=== PATIENT | female | born 2000 | race African-American/Black ===

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

== ENCOUNTER 2018-03-08 10:10 | Emergency (ER) | payer OTHER, MEDICAID ==
[2018-03-08] MEDS ORDERED: NORMAL SALINE 1000 ML 1,000 ML IV ONE (11:59)
[2018-03-08] MEDS ORDERED: ACETAMINOPHEN 325 MG TABLET PO ONE (12:00)
--- NOTE | 2018-03-08 12:01 | ER Document Report ---
ED Medical Screen (RME) - General Chief Complaint: Headache Stated Complaint: HEADACHE, HAND NUMBNESS, VISION ISSUE Time Seen by Provider: 03/08/18 11:57 Notes: 22 weeks female presents today with headache nausea general malaise, cough on and off shortness of breath and exertion. TRAVEL OUTSIDE OF THE [place] IN LAST 30 DAYS: No - Related Data Allergies/Adverse Reactions: No Known Allergies Allergy (Verified 08/07/17 11:35) Past Medical History - Past Medical History Cardiac Medical History: Reports: Hx Hypertension - Gestational Endocrine Medical History: Reports: Hx Diabetes Mellitus Type 2 Renal/ Medical History: Denies: Hx Peritoneal Dialysis Past Surgical History: Reports: Hx Orthopedic Surgery - R leg - Immunizations Hx Diphtheria, Pertussis, Tetanus Vaccination: Yes Physical Exam - Vital signs Vitals: Temp Pulse Resp BP Pulse Ox 97.9 F 87 16 121/72 98 03/08/18 11:05 03/08/18 11:05 03/08/18 11:05 03/08/18 11:05 03/08/18 11:05 Course - Vital Signs Vital signs: Temp Pulse Resp BP Pulse Ox 97.9 F 87 16 121/72 98 03/08/18 11:05 03/08/18 11:05 03/08/18 11:05 03/08/18 11:05 03/08/18 11:05
[2018-03-08 12:48] LABS: APPEARANCE,URINE CLEAR; BILIRUBIN,URINE NEGATIVE (NEGATIVE); COLOR,URINE YELLOW; GLUCOSE, URINE 150 mg/dL (NEGATIVE); KETONES,URINE NEGATIVE (NEGATIVE); LEUKOCYTE ESTERASE,URINE NEGATIVE (NEGATIVE); NITRITE,URINE NEGATIVE (NEGATIVE); PROTEIN,URINE NEGATIVE (NEGATIVE); URINE SPECIFIC GRAVITY 1.013; UROBILINOGEN,URINE NEGATIVE mg/dL (<2.0)
[2018-03-08 12:58] LABS: ALANINE AMINOTRANSFERASE 23 U/L (5-35); ALBUMIN 3.8 g/dL (3.7-5.6); ALKALINE PHOSPHATASE 74 U/L (50-135); ANION GAP 10 (5-19); ASPARTATE AMINO TRANSFERASE 27 U/L (5-30); BILIRUBIN,DIRECT 0.2 mg/dL (0.0-0.4); BILIRUBIN,TOTAL 0.6 mg/dL (0.2-1.3); BLOOD UREA NITROGEN 4 mg/dL (7-20); CALCIUM 9.6 mg/dL (8.4-10.2); CARBON DIOXIDE 26 mmol/L (22-30); CHLORIDE 104 mmol/L (98-107); GLUCOSE 124 mg/dL (75-110); SODIUM 139.6 mmol/L (137-145)
[2018-03-08 13:42] LABS: ABSOLUTE EOSINOPHILS # (AUTO) 0.2 10^3/uL (0.0-0.6); ABSOLUTE LYMPHOCYTES (AUTO) 1.9 10^3/uL (0.5-4.7); ABSOLUTE MONOCYTES (AUTO) 0.9 10^3/uL (0.1-1.4); ABSOLUTE NEUT (AUTO) 10.7 10^3/uL (1.7-8.2); BASOPHILS % (AUTO) 0.2 % (0-2); EOSINOPHILS % (AUTO) 1.2 % (0-6); HEMATOCRIT 38.3 % (36.0-47.0); HEMOGLOBIN 12.8 g/dL (12.0-15.5); LYMPHOCYTES % (AUTO) 13.8 % (13-45); MEAN CORPUSCULAR HEMOGLOBIN 30.3 pg (27.0-33.4); MEAN CORPUSCULAR HGB CONC 33.3 g/dL (32.0-36.0); MEAN CORPUSCULAR VOLUME 91 fl (80-97); MONOCYTES % (AUTO) 6.7 % (3-13); PLATELET COUNT 236 10^3/uL (150-450); RED BLOOD COUNT 4.21 10^6/uL (3.72-5.28); RED CELL DISTRIBUTION WIDTH 13.4 % (11.5-14.0); SEGMENTED NEUTROPHILS % (AUTO) 78.1 % (42-78); TOTAL CELLS COUNTED % (AUTO) 100 %; WHITE BLOOD COUNT 13.7 10^3/uL (4.0-10.5)
--- NOTE | 2018-03-08 14:44 | ER Document Report ---
ED General - General Chief Complaint: Headache Stated Complaint: HEADACHE, HAND NUMBNESS, VISION ISSUE Time Seen by Provider: 03/08/18 11:57 TRAVEL OUTSIDE OF THE [place] IN LAST 30 DAYS: No - HPI Patient complains to provider of: Left-sided headache Notes: Patient coming in today for evaluation of left-sided headache. Patient is a currently 26 weeks . Patient is currently diabetic on metformin states compliance with her medication. Patient states slightly nauseous although just recently had a refill her back fetus. Patient otherwise is resting comfortably denies any trauma states taking half a Tylenol tablet for her headache at home with some relief. Patient denies any recent antibiotics. Upon my evaluation due at the wait for the patient to finish placing a food order her cell phone - Related Data Allergies/Adverse Reactions: No Known Allergies Allergy (Verified 08/07/17 11:35) Past Medical History - Social History Smoking Status: Never Smoker Family History: Reviewed & Not Pertinent Patient has suicidal ideation: No Patient has homicidal ideation: No - Past Medical History Cardiac Medical History: Reports: Hx Hypertension - Gestational Endocrine Medical History: Reports: Hx Diabetes Mellitus Type 2 Renal/ Medical History: Denies: Hx Peritoneal Dialysis Past Surgical History: Reports: Hx Orthopedic Surgery - R leg - Immunizations Hx Diphtheria, Pertussis, Tetanus Vaccination: Yes Review of Systems - Review of Systems Constitutional: Other - Headache EENT: No symptoms reported Cardiovascular: No symptoms reported Respiratory: No symptoms reported Gastrointestinal: No symptoms reported Genitourinary: No symptoms reported Female Genitourinary: No symptoms reported Musculoskeletal: No symptoms reported Skin: No symptoms reported Hematologic/Lymphatic: No symptoms reported Neurological/Psychological: No symptoms reported -: Yes All other systems reviewed and negative Physical Exam - Vital signs Vitals: Temp Pulse Resp BP Pulse Ox 97.9 F 87 16 121/72 98 03/08/18 11:05 03/08/18 11:05 03/08/18 11:05 03/08/18 11:05 03/08/18 11:05 Interpretation: Normal - General General appearance: Appears well, Alert - HEENT Head: Normocephalic, Atraumatic Eyes: Normal Pupils: PERRL - Respiratory Respiratory status: No respiratory distress Chest status: Nontender Breath sounds: Normal Chest palpation: Normal - Cardiovascular Rhythm: Regular Heart sounds: Normal auscultation Murmur: No - Abdominal Inspection: Gravid female Distension: No distension Bowel sounds: Normal Tenderness: Nontender Organomegaly: No organomegaly - Back Back: Normal, Nontender - Extremities General upper extremity: Normal inspection, Nontender, Normal color, Normal ROM , Normal temperature General lower extremity: Normal inspection, Nontender, Normal color, Normal ROM , Normal temperature, Normal weight bearing. No: Robinson's sign - Neurological Neuro grossly intact: Yes Cognition: Normal Orientation: AAOx4 Sharee Coma Scale Eye Opening: Spontaneous [place] Coma Scale Verbal: Oriented [place] Coma Scale Motor: Obeys Commands [place] Coma Scale Total: 15 Speech: Normal Motor strength normal: LUE, RUE, LLE, RLE Sensory: Normal - Psychological Associated symptoms: Normal affect, Normal mood - Skin Skin Temperature: Warm Skin Moisture: Dry Skin Color: Normal Course - Re-evaluation Re-evalutation: 03/08/18 14:48 Laboratory studies not show any critical pathology. 03/08/18 14:48 The patient presents with headache without signs of MEDICAL FACILITIES SECTION DIRECTOR bleed, stroke, infection , or other serious etiology. The patient is neurologically intact. Given the extremely low risk of these diagnoses further testing and evaluation for these possibilities does not appear to be indicated at this time. The patient has been instructed to return if the symptoms worsen or change in any way.. Currently waiting to perform bedside ultrasound to evaluate the patient's baby however patient requested weight is that her boyfriend is currently in the cafeteria. It is made to the patient that we are currently visiting that may be sometime before I can return back to perform bedside ultrasound. 03/08/18 15:12 This ultrasound performed positive motion with heart rate of 140- 143. Patient was encouraged follow-up with BUSINESS BANKING MANAGER - Vital Signs Vital signs: Temp Pulse Resp BP Pulse Ox 98.2 F 94 H 16 121/60 99 03/08/18 14:47 03/08/18 14:47 03/08/18 14:47 03/08/18 14:47 03/08/18 14:47 - Laboratory Result Diagrams: 03/08/18 12:19 03/08/18 12:19 Laboratory results interpreted by me: 03/08/18 03/08/18 03/08/18 12:19 12:19 12:19 WBC 13.7 H Seg Neutrophils % 78.1 H Absolute Neutrophils 10.7 H BUN 4 L Creatinine 0.44 L Glucose 124 H Urine Glucose (UA) 150 H Discharge - Discharge Clinical Impression: Headache Qualifiers: Headache type: unspecified Headache chronicity pattern: unspecified pattern Intractability: not intractable Qualified Code(s): R51 - Headache Qualifiers: Weeks of gestation: 26 weeks Qualified Code(s): Z3A.26 - 26 weeks gestation of Condition: Stable Disposition: HOME, SELF-CARE Instructions: Headache ([facility]), ([facility]) Additional Instructions: +Your evaluation today shows no critical pathology. Please make sure he follow- up with your BUSINESS BANKING MANAGER. Do believe some your headache may be due to underlying dehydration. Please make sure you are drinking plenty of fluids to stay well- hydrated. Continue with your nausea medication as prescribed. Blow some further information she can use to help out with any nausea that you are experiencing during . I would also recommend taking Tylenol for your headache you may take 650-1000 mg 4 times a day for your headache. Return to ER symptoms worsen. For nausea and vomiting during I recomment: Start with 10-12.5 mg of pyridoxine (vitamin B6) three times a day for 2 days. If not fully effective, Increase to 12.5 mg of pyridoxine four times a day for 2 days. If not fully effective, Increase to 25 mg of pyridoxine three times a day for 2 days. If not fully effective, Continue 25 mg pyridoxine 3 times a day, and add 12.5 mg of doxylamine before bedtime each day for 2 days. If not fully effective, Continue 25 mg pyridoxine 3 times a day, and take 12.5 mg of doxylamine twice a day. If not fully effective, Continue 25 mg pyridoxine 3 times a day, and take 12.5 mg of doxylamine three times a day. If not fully effective, Continue 25 mg pyridoxine 3 times a day, and 12.5 mg of doxylamine 3 times a day , while adding Emetrol, one to two tablespoons (15-30 cc) taken once or twice a day as needed. (Emetrol is an [id number] mixture of sugar syrups and phosphoric acid [phosphorylated carbohydrate solution]) that acts by soothing the actual wall of the gastrointestinal tract). If not fully effective, Consult with your doctor. Forms: Return to Work
[2018-03-08 14:47] VITALS: BP 121/60
== END 2018-03-08 15:10 | disposition home or self-care (01) ==
LOC: ER 10:10
DX: O26.892 Other specified pregnancy related conditions, second trimester (principal); R51 Headache; R20.0 Anesthesia of skin; O13.2 Gestational [pregnancy-induced] hypertension without significant proteinuria, second trimester; O24.912 Unspecified diabetes mellitus in pregnancy, second trimester; Z3A.26 26 weeks gestation of pregnancy
CPT/HCPCS: 99284; 96360; 96361; 86900; 86901; 85025; 80053; 81001; J7030

== ENCOUNTER 2018-03-17 19:13 | Emergency (ER) | payer OTHER, MEDICAID ==
[2018-03-17] MEDS ORDERED: ALBUTEROL SULFATE 0.042% NEB (1.25 MG/3 ML) AMPUL NEB ONE (19:43)
--- NOTE | 2018-03-17 19:49 | ER Document Report ---
ED Respiratory Problem - General Chief Complaint: Chest Congestion Stated Complaint: WHEEZING Time Seen by Provider: 03/17/18 19:42 Information source: Patient Notes: Chief complaint: Coughing and wheezing History of complain:( obtained from----patient) 17 years old female with a history of asthma, presents today with coughing and wheezing on and off for the last 2 days. No fever chills, denies any chest pain denies any other constitutional symptoms. Onset: As above Duration: 2 days Severity: Mild to moderate Quality: Easy Context: Asthma Exacerbating factor and relieving factors: REVIEW OF SYSTEMS: CONSTITUTIONAL : Denies fever, chills, or sweats. Denies recent illness. EENT: Denies eye, ear, throat, or mouth pain or symptoms. Denies nasal or sinus congestion or discharge. Denies throat, tongue, or mouth swelling or difficulty swallowing. CARDIOVASCULAR: Denies chest pain. Denies palpitations or racing or irregular heart beat. Denies ankle edema. RESPIRATORY: Denies cough, cold, or chest congestion. Denies shortness of breath, difficulty breathing, or wheezing. GASTROINTESTINAL: Denies distention. Denies nausea, vomiting, or diarrhea. Denies blood in vomitus, stools, or per rectum. Denies black, tarry stools. Denies constipation. GENITOURINARY: Denies difficulty urinating, painful urination, burning, frequency, blood in urine, or discharge. FEMALE GENITOURINARY: Denies vaginal bleeding, heavy or abnormal periods, irregular periods. Denies vaginal discharge or odor. MUSCULOSKELETAL: Denies back or neck pain or stiffness. Denies joint pain or swelling. SKIN: Denies rash, lesions or sores. HEMATOLOGIC : Denies easy bruising or bleeding. LYMPHATIC: Denies swollen, enlarged glands. NEUROLOGICAL: Denies confusion or altered mental status. Denies passing out or loss of consciousness. Denies dizziness or lightheadedness. Denies headache. Denies weakness or paralysis or loss of use of either side. Denies problems with gait or speech. Denies sensory loss, numbness, or tingling. Denies seizures. PSYCHIATRIC: Denies anxiety or stress. Denies depression, suicidal ideation, or homicidal ideation. ALL OTHER SYSTEMS REVIEWED AND NEGATIVE. PHYSICAL EXAMINATION: GENERAL: Well-appearing, well-nourished and in no acute distress. HEAD: Atraumatic, normocephalic. EYES: Pupils equal round and reactive to light, extraocular movements intact, conjunctiva are normal. ENT: Nares patent, oropharynx clear without exudates. Moist mucous membranes. NECK: Normal range of motion, supple without lymphadenopathy LUNGS: Breath sounds clear to auscultation bilaterally and equal. Decreased breath sounds with scattered mild expiratory wheeze. HEART: Regular rate and rhythm without murmurs ABDOMEN: Soft, nontender, nondistended abdomen. No guarding, no rebound. No masses appreciated. Examination of genitals-deferred Musculoskeletal: Normal range of motion, no pitting or edema. No cyanosis. NEUROLOGICAL: Cranial nerves grossly intact. Normal speech, normal gait. Normal sensory, motor exams PSYCH: Normal mood, normal affect. SKIN: Warm, Dry, normal turgor, no rashes or lesions noted. Dictation was performed using [employer] voice recognition software TRAVEL OUTSIDE OF THE [place] IN LAST 30 DAYS: No - HPI Notes: Dictated - Related Data Allergies/Adverse Reactions: No Known Allergies Allergy (Verified 08/07/17 11:35) Past Medical History - Social History Smoking Status: Never Smoker Frequency of alcohol use: None Drug Abuse: None Lives with: Family Family History: Reviewed & Not Pertinent - Past Medical History Cardiac Medical History: Reports: Hx Hypertension - Gestational Endocrine Medical History: Reports: Hx Diabetes Mellitus Type 2 Renal/ Medical History: Denies: Hx Peritoneal Dialysis Past Surgical History: Reports: Hx Orthopedic Surgery - R leg - Immunizations Hx Diphtheria, Pertussis, Tetanus Vaccination: Yes Review of Systems - Review of Systems Notes: Dictated Physical Exam - Vital signs Vitals: Temp Pulse Resp BP Pulse Ox 98.4 F 103 H 16 136/76 H 100 03/17/18 19:18 03/17/18 19:18 03/17/18 19:18 03/17/18 19:18 03/17/18 19:18 - Notes Notes: Dictated Course - Re-evaluation Re-evalutation: 03/17/18 19:49 Given nebulizer treatment - Vital Signs Vital signs: Temp Pulse Resp BP Pulse Ox 98.4 F 103 H 16 136/76 H 100 03/17/18 19:18 03/17/18 19:18 03/17/18 19:18 03/17/18 19:18 03/17/18 19:18 Discharge - Discharge Clinical Impression: Hyperactive airway disease Qualifiers: Asthma severity: moderate Asthma persistence: unspecified Asthma complication type: with acute exacerbation Qualified Code(s): J45.901 - Unspecified asthma with (acute) exacerbation Condition: Fair Disposition: HOME, SELF-CARE Instructions: Bronchitis With Bronchospasm (Wheezing) (OM) Prescriptions: Albuterol Sulfate [Proair HFA Inhalation Aerosol 8.5 gm MDI] 2 puff IH Q4H PRN # 1 mdi PRN Reason:
[2018-03-17 20:30] VITALS: BP 128/78
== END 2018-03-17 20:32 | disposition home or self-care (01) ==
LOC: ER 19:13
DX: J45.901 Unspecified asthma with (acute) exacerbation (principal); E11.9 Type 2 diabetes mellitus without complications
CPT/HCPCS: 94640; 99284; J3490

== ENCOUNTER 2018-04-24 18:22 | Outpatient (CLI) | payer OTHER, MEDICAID ==
[2018-04-24 19:26] LABS: APPEARANCE,URINE SLIGHTLY-CLOUDY; BILIRUBIN,URINE NEGATIVE (NEGATIVE); COLOR,URINE YELLOW; GLUCOSE, URINE >=500 mg/dL (NEGATIVE); KETONES,URINE TRACE mg/dL (NEGATIVE); LEUKOCYTE ESTERASE,URINE NEGATIVE (NEGATIVE); NITRITE,URINE NEGATIVE (NEGATIVE); PROTEIN,URINE 30 mg/dL (NEGATIVE); URINE SPECIFIC GRAVITY 1.018; UROBILINOGEN,URINE NEGATIVE mg/dL (<2.0)
[2018-04-24 19:46] LABS: URINE AMPHETAMINES SCREEN NEGATIVE; URINE BARBITURATES SCREEN NEGATIVE; URINE BENZODIAZEPINES SCREEN NEGATIVE; URINE COCAINE SCREEN NEGATIVE; URINE MARIJUANA (THC) SCREEN NEGATIVE; URINE METHADONE SCREEN NEGATIVE; URINE PHENCYCLIDINE SCREEN NEGATIVE
[2018-04-24 21:16] LABS: ABSOLUTE BASOPHILS # (AUTO) 0.1 10^3/uL (0.0-0.2); ABSOLUTE EOSINOPHILS # (AUTO) 0.2 10^3/uL (0.0-0.6); ABSOLUTE LYMPHOCYTES (AUTO) 2.2 10^3/uL (0.5-4.7); ABSOLUTE NEUT (AUTO) 7.3 10^3/uL (1.7-8.2); BASOPHILS % (AUTO) 0.5 % (0-2); EOSINOPHILS % (AUTO) 1.8 % (0-6); HEMATOCRIT 35.4 % (36.0-47.0); HEMOGLOBIN 12.4 g/dL (12.0-15.5); LYMPHOCYTES % (AUTO) 20.2 % (13-45); MEAN CORPUSCULAR HEMOGLOBIN 30.4 pg (27.0-33.4); MEAN CORPUSCULAR HGB CONC 34.9 g/dL (32.0-36.0); MEAN CORPUSCULAR VOLUME 87 fl (80-97); MONOCYTES % (AUTO) 9.2 % (3-13); PLATELET COUNT 210 10^3/uL (150-450); RED BLOOD COUNT 4.07 10^6/uL (3.72-5.28); RED CELL DISTRIBUTION WIDTH 12.4 % (11.5-14.0); SEGMENTED NEUTROPHILS % (AUTO) 68.3 % (42-78); TOTAL CELLS COUNTED % (AUTO) 100 %; WHITE BLOOD COUNT 10.7 10^3/uL (4.0-10.5)
[2018-04-24 21:39] LABS: ALANINE AMINOTRANSFERASE 24 U/L (9-52); ALBUMIN 3.3 g/dL (3.5-5.0); ALKALINE PHOSPHATASE 113 U/L (38-126); ANION GAP 8 (5-19); ASPARTATE AMINO TRANSFERASE 20 U/L (14-36); BILIRUBIN,DIRECT 0.2 mg/dL (0.0-0.4); BILIRUBIN,TOTAL 0.6 mg/dL (0.2-1.3); BLOOD UREA NITROGEN 7 mg/dL (7-20); CALCIUM 9.9 mg/dL (8.4-10.2); CARBON DIOXIDE 22 mmol/L (22-30); CHLORIDE 107 mmol/L (98-107); GLUCOSE 91 mg/dL (75-110); POTASSIUM 4.1 mmol/L (3.6-5.0); SODIUM 137.2 mmol/L (137-145); TOTAL PROTEIN 6.2 g/dL (6.3-8.2)
[2018-04-24] MEDS ORDERED: METFORMIN HCL 500 MG TABLET ONE (22:03)
--- NOTE | 2018-04-24 22:05 | RADIOLOGY REPORT (SQ) ---
EXAM DESCRIPTION: US FOLLOW UP COMPLETED DATE/TME: 04/24/2018 20:43 CLINICAL HISTORY: 18 years, Female, limited care, complete ob us FINDINGS: Single viable IUP is noted. CJ is within normal limits at 9.0 cm. Anterior placenta. Fetus is in cephalic presentation. anatomic survey is unremarkable. Cervix measures 1.7 cm. Estimated gestational age is 32 weeks and two days. IMPRESSION: Single viable IUP of 32 weeks and two days.
[2018-04-24 22:21] LABS: RUBELLA INTERPRETATION NEGATIVE
[2018-04-24] MEDS ORDERED: METFORMIN HCL 500 MG TABLET PO ONE (23:00)
--- NOTE | 2018-04-25 00:28 | Non Stress Test Report ---
Non Stress Test Datetime Report Generated by CPN: 04/25/2018 00:28 DEMOGRAPHIC Test Number: 1 EGA NST: 32.5 INDICATION Indication for Study: Ordered by Provider VITAL SIGNS Pulse - NST: 85 RESP - NST: 16 NBPSYS NST: 136 NBPDIA NST: 67 URINE RESULTS Urine Protein, NST: Negative Urine Ketones - NST: Positive Urine Glucose - NST: Positive Urine Blood - NST: Negative MONITORING Monitor Explained: Monitor Explained; Test Explained; Patient Verbalized Understanding Time on Monitor: 04/25/2018 19:01 Time off Monitor: 04/25/2018 20:53 NST Duration: 112 NST INTERVENTIONS NST Interventions: None Physician Notified NST: Dr. Brooks BABY A: [id number] BABY A Movement : Present Contraction Frequency : x1 FHR Baseline : 150 Accelerations : 15X15 Decelerations : None Variability : Moderate 6-25bpm NST Review: Meets Criteria for Reactive NST NST Review and Verified By : K. Korey, RN NST Results: Reactive NST REPORT Report Trigger: Send Report
[2018-04-26 07:41] LABS: HEPATITIS C VIRUS AB <0.1 s/co ratio (0.0-0.9)
[2018-04-26 08:11] LABS: HEPATITS B SURFACE ANTIGEN Negative (Negative)
== END 2018-04-24 22:38 | disposition home or self-care (01) ==
LOC: LC 18:22
PROVIDERS: ATTEND Obstetrics & Gynecology
PROC: 4A1HXCZ Monitoring of Products of Conception, Cardiac Rate, External Approach (ICD-10-PCS; principal; 2018-04-24)
DX: O47.03 False labor before 37 completed weeks of gestation, third trimester (principal); Z3A.32 32 weeks gestation of pregnancy
CPT/HCPCS: 36415; 59025; 76805; 80053; 80307; 81001; 82962; 83036; 85025; 86592; 86701; 86762; 86803; 86804; 86850; 86900; 86901; 87340; 93976

== ENCOUNTER 2018-04-29 17:05 | Outpatient (CLI) | payer OTHER, MEDICAID ==
[2018-04-29 18:09] LABS: APPEARANCE,URINE SLIGHTLY-CLOUDY; BILIRUBIN,URINE NEGATIVE (NEGATIVE); COLOR,URINE YELLOW; GLUCOSE, URINE 50 mg/dL (NEGATIVE); KETONES,URINE TRACE mg/dL (NEGATIVE); LEUKOCYTE ESTERASE,URINE TRACE (NEGATIVE); NITRITE,URINE NEGATIVE (NEGATIVE); PROTEIN,URINE >=500 mg/dL (NEGATIVE); URINE SPECIFIC GRAVITY 1.025; UROBILINOGEN,URINE NEGATIVE mg/dL (<2.0)
[2018-04-29 18:25] LABS: URINE AMPHETAMINES SCREEN NEGATIVE; URINE BARBITURATES SCREEN NEGATIVE; URINE BENZODIAZEPINES SCREEN NEGATIVE; URINE COCAINE SCREEN NEGATIVE; URINE MARIJUANA (THC) SCREEN NEGATIVE; URINE METHADONE SCREEN NEGATIVE; URINE PHENCYCLIDINE SCREEN NEGATIVE
== END 2018-04-29 19:00 | disposition home or self-care (01) ==
LOC: LC 17:05
PROVIDERS: ATTEND Obstetrics & Gynecology Gynecology
PROC: 4A1HXCZ Monitoring of Products of Conception, Cardiac Rate, External Approach (ICD-10-PCS; principal; 2018-04-29)
DX: O24.415 Gestational diabetes mellitus in pregnancy, controlled by oral hypoglycemic drugs (principal); Z3A.33 33 weeks gestation of pregnancy; Z79.84 Long term (current) use of oral hypoglycemic drugs
CPT/HCPCS: 80307; 81001; 82962

== ENCOUNTER 2018-05-05 16:52 | Outpatient (CLI) | payer OTHER, MEDICAID ==
[2018-05-05 17:26] LABS: ABSOLUTE EOSINOPHILS # (AUTO) 0.1 10^3/uL (0.0-0.6); ABSOLUTE MONOCYTES (AUTO) 1.1 10^3/uL (0.1-1.4); ABSOLUTE NEUT (AUTO) 7.2 10^3/uL (1.7-8.2); BASOPHILS % (AUTO) 0.2 % (0-2); EOSINOPHILS % (AUTO) 1.3 % (0-6); HEMATOCRIT 32.6 % (36.0-47.0); HEMOGLOBIN 11.5 g/dL (12.0-15.5); LYMPHOCYTES % (AUTO) 19.1 % (13-45); MEAN CORPUSCULAR HEMOGLOBIN 30.7 pg (27.0-33.4); MEAN CORPUSCULAR HGB CONC 35.2 g/dL (32.0-36.0); MEAN CORPUSCULAR VOLUME 87 fl (80-97); MONOCYTES % (AUTO) 10.6 % (3-13); PLATELET COUNT 200 10^3/uL (150-450); RED BLOOD COUNT 3.73 10^6/uL (3.72-5.28); RED CELL DISTRIBUTION WIDTH 12.8 % (11.5-14.0); SEGMENTED NEUTROPHILS % (AUTO) 68.8 % (42-78); TOTAL CELLS COUNTED % (AUTO) 100 %; WHITE BLOOD COUNT 10.4 10^3/uL (4.0-10.5)
[2018-05-05 17:48] LABS: ALANINE AMINOTRANSFERASE 28 U/L (9-52); ALKALINE PHOSPHATASE 120 U/L (38-126); ANION GAP 9 (5-19); ASPARTATE AMINO TRANSFERASE 21 U/L (14-36); BILIRUBIN,DIRECT 0.2 mg/dL (0.0-0.4); BILIRUBIN,TOTAL 0.5 mg/dL (0.2-1.3); BLOOD UREA NITROGEN 7 mg/dL (7-20); CALCIUM 9.6 mg/dL (8.4-10.2); CARBON DIOXIDE 18 mmol/L (22-30); CHLORIDE 107 mmol/L (98-107); GLUCOSE 126 mg/dL (75-110); POTASSIUM 4.3 mmol/L (3.6-5.0); SODIUM 134.3 mmol/L (137-145); TOTAL PROTEIN 5.6 g/dL (6.3-8.2); URIC ACID 3.1 mg/dL (2.5-6.2)
[2018-05-05 18:01] LABS: APPEARANCE,URINE CLOUDY; BILIRUBIN,URINE NEGATIVE (NEGATIVE); CALCIUM OXALATE CRYSTALS,URINE MODERATE /HPF; COLOR,URINE YELLOW; GLUCOSE, URINE 150 mg/dL (NEGATIVE); KETONES,URINE TRACE mg/dL (NEGATIVE); LEUKOCYTE ESTERASE,URINE NEGATIVE (NEGATIVE); NITRITE,URINE NEGATIVE (NEGATIVE); PROTEIN,URINE >=500 mg/dL (NEGATIVE); URINE SPECIFIC GRAVITY 1.029
[2018-05-05 18:07] LABS: URINE AMPHETAMINES SCREEN NEGATIVE; URINE BARBITURATES SCREEN NEGATIVE; URINE BENZODIAZEPINES SCREEN NEGATIVE; URINE COCAINE SCREEN NEGATIVE; URINE MARIJUANA (THC) SCREEN NEGATIVE; URINE METHADONE SCREEN NEGATIVE; URINE PHENCYCLIDINE SCREEN NEGATIVE
[2018-05-05 18:13] LABS: URINE CREATININE 270.6 mg/dL (16-327)
[2018-05-05 18:34] LABS: UR PRO/CREAT RATIO RESULT 3.2 mg/mg (0.0-0.2); URINE PROTEIN 858.1 mg/dL (<12)
[2018-05-05] MEDS ORDERED: RINGERS SOLUTION,LACTATED 1,000 ML IV ONE (18:59)
[2018-05-05] MEDS ORDERED: RINGERS SOLUTION,LACTATED 1,000 ML IV PRN (18:59)
--- NOTE | 2018-05-05 19:10 | Non Stress Test Report ---
Non Stress Test Datetime Report Generated by CPN: 05/05/2018 19:09 DEMOGRAPHIC EGA NST: 34.1 EGA NST: 33.2 INDICATION Indication for Study: Other Indication for Study: Gestational Hypertension; Diabetes Mellitus Indication for Study (NST) Other: Labor Check MONITORING Monitor Explained: Monitor Explained; Test Explained; Patient Verbalized Understanding Monitor Explained: Monitor Explained; Test Explained; Patient Verbalized Understanding Time on Monitor: 05/05/2018 17:27 Time on Monitor: 04/29/2018 18:01 Time off Monitor: 05/05/2018 18:39 Time off Monitor: 04/29/2018 18:58 NST Duration: 72 NST Duration: 57 NST INTERVENTIONS NST Interventions: PO Hydration NST Interventions: PO Hydration; Meal Given; Reposition Patient Physician Notified NST: Dr. Infante BABY A: [id number] BABY A Movement : Present Contraction Frequency : irregular Contraction Frequency : 0 FHR Baseline : 150 Accelerations : 15X15 Accelerations : 15X15 Decelerations : None Decelerations : None Variability : Moderate 6-25bpm Variability : Moderate 6-25bpm NST Review: Meets Criteria for Reactive NST NST Review and Verified By : CHEIKH Burton NST Review and Verified By : Ellyn Nguyen RN NST Results: Reactive NST REPORT Report Trigger: Send Report
[2018-05-05] MEDS ORDERED: LABETALOL HCL 200 MG TABLET ONE (20:29)
[2018-05-05] MEDS ORDERED: LABETALOL HCL 200 MG TABLET PO ONE (21:00)
== END 2018-05-05 21:37 | disposition home or self-care (01) ==
LOC: LC 16:52
PROVIDERS: ATTEND Obstetrics & Gynecology Gynecology
PROC: 4A1HXCZ Monitoring of Products of Conception, Cardiac Rate, External Approach (ICD-10-PCS; principal; 2018-05-05)
DX: O13.3 Gestational [pregnancy-induced] hypertension without significant proteinuria, third trimester (principal); O24.113 Pre-existing type 2 diabetes mellitus, in pregnancy, third trimester; E11.9 Type 2 diabetes mellitus without complications; Z79.84 Long term (current) use of oral hypoglycemic drugs; Z3A.34 34 weeks gestation of pregnancy
CPT/HCPCS: 36415; 59025; 80053; 80307; 81001; 82570; 83615; 84156; 84550; 85025

== ENCOUNTER 2018-05-09 16:15 | Inpatient (IN) | payer OTHER, MEDICAID ==
[2018-05-09 17:24] LABS: ABSOLUTE BASOPHILS # (AUTO) 0.1 10^3/uL (0.0-0.2); ABSOLUTE EOSINOPHILS # (AUTO) 0.1 10^3/uL (0.0-0.6); ABSOLUTE LYMPHOCYTES (AUTO) 2.1 10^3/uL (0.5-4.7); ABSOLUTE MONOCYTES (AUTO) 0.9 10^3/uL (0.1-1.4); ABSOLUTE NEUT (AUTO) 7.5 10^3/uL (1.7-8.2); BASOPHILS % (AUTO) 0.8 % (0-2); HEMATOCRIT 32.2 % (36.0-47.0); HEMOGLOBIN 11.3 g/dL (12.0-15.5); LYMPHOCYTES % (AUTO) 19.3 % (13-45); MEAN CORPUSCULAR HEMOGLOBIN 30.6 pg (27.0-33.4); MEAN CORPUSCULAR VOLUME 88 fl (80-97); MONOCYTES % (AUTO) 8.8 % (3-13); PLATELET COUNT 198 10^3/uL (150-450); RED BLOOD COUNT 3.68 10^6/uL (3.72-5.28); RED CELL DISTRIBUTION WIDTH 13.2 % (11.5-14.0); SEGMENTED NEUTROPHILS % (AUTO) 70.1 % (42-78); TOTAL CELLS COUNTED % (AUTO) 100 %; WHITE BLOOD COUNT 10.7 10^3/uL (4.0-10.5)
[2018-05-09 17:37] LABS: ALANINE AMINOTRANSFERASE 26 U/L (9-52); ALKALINE PHOSPHATASE 118 U/L (38-126); ANION GAP 8 (5-19); ASPARTATE AMINO TRANSFERASE 26 U/L (14-36); BILIRUBIN,DIRECT 0.1 mg/dL (0.0-0.4); BILIRUBIN,TOTAL 0.5 mg/dL (0.2-1.3); BLOOD UREA NITROGEN 8 mg/dL (7-20); CALCIUM 9.5 mg/dL (8.4-10.2); CARBON DIOXIDE 20 mmol/L (22-30); CHLORIDE 106 mmol/L (98-107); GLUCOSE 83 mg/dL (75-110); SODIUM 134.4 mmol/L (137-145); TOTAL PROTEIN 5.5 g/dL (6.3-8.2); URIC ACID 3.5 mg/dL (2.5-6.2)
--- NOTE | 2018-05-09 17:45 | Non Stress Test Report ---
Non Stress Test Datetime Report Generated by CPN: 05/09/2018 17:44 DEMOGRAPHIC EGA NST: 34.5 INDICATION Indication for Study: Ordered by Provider Indication for Study (NST) Other: sent from office VITAL SIGNS Temperature - NST: 98.3 Pulse - NST: 85 RESP - NST: 18 NBPSYS NST: 141 NBPDIA NST: 93 MONITORING Monitor Explained: Monitor Explained; Test Explained; Patient Verbalized Understanding Time on Monitor: 05/09/2018 17:13 Time off Monitor: 05/09/2018 17:33 NST Duration: 20 NST INTERVENTIONS NST Interventions: PO Hydration Physician Notified NST: Dr. Brooks BABY A: [id number] BABY A Movement : Present Contraction Frequency : 0 FHR Baseline : 140 Accelerations : 15X15 Decelerations : None Variability : Moderate 6-25bpm NST Review: Meets Criteria for Reactive NST NST Review and Verified By : Khushbu Mendoza RNC NST Results: Reactive NST REPORT Report Trigger: Send Report
[2018-05-09 17:53] LABS: APPEARANCE,URINE CLEAR; BILIRUBIN,URINE SMALL (NEGATIVE); COLOR,URINE AMBER; GLUCOSE, URINE NEGATIVE (NEGATIVE); KETONES,URINE NEGATIVE (NEGATIVE); LEUKOCYTE ESTERASE,URINE NEGATIVE (NEGATIVE); NITRITE,URINE NEGATIVE (NEGATIVE); PROTEIN,URINE 30 mg/dL (NEGATIVE); UROBILINOGEN,URINE NEGATIVE mg/dL (<2.0)
[2018-05-09 17:54] LABS: URINE SPECIFIC GRAVITY 1.022
[2018-05-09 18:14] LABS: URINE AMPHETAMINES SCREEN NEGATIVE; URINE BARBITURATES SCREEN NEGATIVE; URINE BENZODIAZEPINES SCREEN NEGATIVE; URINE COCAINE SCREEN NEGATIVE; URINE MARIJUANA (THC) SCREEN NEGATIVE; URINE METHADONE SCREEN NEGATIVE; URINE PHENCYCLIDINE SCREEN NEGATIVE
[2018-05-09 18:21] LABS: URINE CREATININE 253.2 mg/dL (16-327)
[2018-05-09 18:35] LABS: UR PRO/CREAT RATIO RESULT 4.9 mg/mg (0.0-0.2); URINE PROTEIN 1231.1 mg/dL (<12)
--- NOTE | 2018-05-09 19:03 | Admission Physical ---
Datetime Report Generated by CPN: 05/09/2018 19:02 CURRENT ADMISSION Chief Complaint Other: Elevated bp GDM Indication for Induction: Not Applicable Admit Impression : Observation/Evaluation Admit Plan: Observation/Evaluation ALLERGIES Medication Allergies: No Medication Allergies: No Known Allergies (05/09/2018) Latex: No Latex Allergies Food Allergies: no Environmental Allergies: pollen OBSTETRICAL HISTORY EDC: 06/15/2018 00:00 : 1 Para: 0 Term: 0 : 0 SAB: 0 IAB: 0 Ectopic: 0 Livin Cesareans: 0 VBACs: 0 Multiple Births: 0 CARIDAD: No ART Treatment: No Uterine Anomaly: No Hx Previous C/S: No Hx Loss/Stillborn: No Hx : No Depression/PP Depression: No Post Hemorrhage: No Current Procedures: Ultrasound Obstetrical History Comments: g1-current , limited care SEE RECORDS Alcohol: No Marijuana : No Cocaine: No Other Illicit Drugs: No Cigarettes: Never Smoker. [id number] MEDICAL HISTORY Diabetes: Yes Diabetes Type: Type II - NIDDM Blood Transfusion: No Pulmonary Disease (Asthma, TB): Yes Breast Disease: No Health Assessment And Treatment Teacher Surgery: No Heart Disease: No Hosp/Surgery: Yes Autoimmune Disorder: No Anesthetic Complications: No Kidney Disease: No Abnormal Pap Smear: No Neuro/Epilepsy: No Psychiatric Disorders: No Other Medical Diseases: No Hepatitis/Liver Disease: No Significant Family History: No Varicosities/Phlebitis: No Trauma/Violence : No Thyroid Dysfunction: No Medical History Comments: type 2 diabetes on metformin diagnosed in 2016, asthma as a child- has albuterol, fx right femur with surgery INFECTIOUS HISTORY Gonorrhea: No Genital Herpes: No Chlamydia: Yes Tuberculosis: No Syphilis: No Hepatitis: No HIV/AIDS Exposure: No Rash or Viral Illness: No HPV: No Infectious History Comments: hx chlamydia 2016 PHYSICAL EXAM General: Normal HEENT: Normal Neurologic: Normal Thyroid: Normal Heart: Normal Lungs: Normal Breast: Deferred Back: Normal Abdomen: Normal Genitourinary Exam: Deferred Extremities: Normal DTRs: Normal Pelvic Type: Adequate Vital Signs: Reviewed MEMBRANES Pooling: Negative FETUS A FHR- Baseline: 40 Decelerations: None FHR Category: Category I Admit Comment: admit for bp monitoring and fsbs PLANS FOR LABOR AND DELIVERY Labor and Delivery: None Pain Management: Natural Feeding Preference: Breast Benefit of Breast Feed Discussed: Yes INFORMED CONSENT Signature: with User ID: [email or web address]
[2018-05-09] MEDS ORDERED: LABETALOL HCL 200 MG TABLET ONE (20:00)
[2018-05-09] MEDS ORDERED: ACETAMINOPHEN 325 MG TABLET ONE (20:54)
[2018-05-09] MEDS: ACETAMINOPHEN 325 MG TABLET PO PRN (20:55)
[2018-05-09] MEDS ORDERED: HYDRALAZINE HCL INJ/PF 20 MG/1 ML SDV ONE (21:15)
[2018-05-09] MEDS ORDERED: HYDRALAZINE HCL INJ/PF 20 MG/1 ML SDV IV ONE (22:00)
[2018-05-09] MEDS: LABETALOL HCL 200 MG TABLET PO SCH (23:23)
[2018-05-09] MEDS: INSULIN NPH (ISOPHANE), HUMAN 100 UNIT/ML 3 ML SUBCUT SCH (23:28)
[2018-05-10] MEDS: ACETAMINOPHEN 325 MG TABLET PO PRN ×3 (03:37→22:31)
[2018-05-10] MEDS: LABETALOL HCL 200 MG TABLET PO SCH ×2 (09:04→21:20)
[2018-05-10] MEDS: INSULIN NPH (ISOPHANE), HUMAN 100 UNIT/ML 3 ML SUBCUT SCH ×2 (09:05→21:21)
[2018-05-10] MEDS: INSULIN REG, HUMAN 100 UNIT/ML 3 ML VIAL (PYX) SUBCUT SCH (09:06)
--- NOTE | 2018-05-10 11:51 | PDOC PROGRESS REPORT ---
Subjective Progress Note for:: 05/10/18 Subjective:: doing well. no PreE ROS at this time. +FM Reason For Visit: IUP 34.5 GESTATIONAL DIABETES, NEPHROTIC SYNDROME, Physical Exam - Physical Exam Vital Signs: Temp Pulse Resp BP Pulse Ox 98.2 F 95 16 156/94 H 99 05/10/18 08:15 05/10/18 08:15 05/10/18 08:15 05/10/18 08:15 05/10/18 08:15 Intake & Output 05/09/18 05/10/18 05/11/18 06:59 06:59 06:59 Intake Total 600 360 Output Total 500 200 Balance 100 160 Weight 76.1 kg General appearance: PRESENT: no acute distress, cooperative GI/Abdominal exam: PRESENT: soft - gravid, palpable FM Result Laboratory Results: 05/09/18 17:09 05/09/18 17:09 05/09/18 05/09/18 05/09/18 16:45 17:09 17:09 WBC 10.7 H RBC 3.68 L Hgb 11.3 L Hct 32.2 L MCV 88 MCH 30.6 MCHC 35.0 RDW 13.2 Plt Count 198 Seg Neutrophils % 70.1 Lymphocytes % 19.3 Monocytes % 8.8 Eosinophils % 1.0 Basophils % 0.8 Absolute Neutrophils 7.5 Absolute Lymphocytes 2.1 Absolute Monocytes 0.9 Absolute Eosinophils 0.1 Absolute Basophils 0.1 Sodium 134.4 L Potassium 4.0 Chloride 106 Carbon Dioxide 20 L Anion Gap 8 BUN 8 Creatinine 0.49 L Est GFR ( Amer) > 60 Est GFR (Non-Af Amer) > 60 Glucose 83 Uric Acid 3.5 Calcium 9.5 Total Bilirubin 0.5 AST 26 ALT 26 Alkaline Phosphatase 118 Total Protein 5.5 L Albumin 3.0 L Urine Color MARTIN Urine Appearance CLEAR Urine pH 5.0 Ur Specific [place] 1.022 Urine Protein 30 H Urine Glucose (UA) NEGATIVE Urine Ketones NEGATIVE Urine Blood NEGATIVE Urine Nitrite NEGATIVE Ur Leukocyte Esterase NEGATIVE Urine WBC (Auto) 15 Urine RBC (Auto) 2 Assessment & Plan - Diagnosis (1) and insulin-dependent diabetes mellitus in third trimester Is this a current diagnosis for this admission?: Yes (2) Chronic hypertension affecting Is this a current diagnosis for this admission?: Yes - Time Time Spent with patient: Less than 15 minutes Anticipated discharge: Home Within: within 48 hours - Inpatient Certification Based on my medical assessment, after consideration of the patient's comorbidities, presenting symptoms, or acuity I expect that the services needed warrant INPATIENT care.: Yes I certify that my determination is in accordance with my understanding of Medicare's requirements for reasonable and necessary INPATIENT services [42 CFR 412.3e].: Yes Medical Necessity: Need Close Monitoring Due to Risk of Patient Decompensation - Plan Summary Plan Summary: continue to monitor BP and maintain control of glucose. I did grief counsellor the patient that there is a likelihood of early delivery but that at this gestational age continuing the is priority unless patient's condition becomes worsened. voices understanding
[2018-05-10] MEDS ORDERED: INSULIN REG, HUMAN 100 UNIT/ML 3 ML VIAL (PYX) SUBCUT SCH (16:00)
[2018-05-10 22:39] LABS: 24 HOUR URINE PROTEIN RESULT 13398 mg/day (42-225); URINE PROTEIN 597.6 mg/dL (<12)
[2018-05-11] MEDS: INSULIN NPH (ISOPHANE), HUMAN 100 UNIT/ML 3 ML SUBCUT SCH (07:59)
[2018-05-11] MEDS: INSULIN REG, HUMAN 100 UNIT/ML 3 ML VIAL (PYX) SUBCUT SCH (08:00)
[2018-05-11] MEDS: LABETALOL HCL 200 MG TABLET PO SCH ×2 (10:40→22:04)
--- NOTE | 2018-05-11 10:49 | PDOC PROGRESS REPORT ---
Subjective Progress Note for:: 05/11/18 Subjective:: Patient states that she feels good; patient denies chest pain, shortness of breath, fever/chills or nausea/vomiting. Patient denies headache. Patient admits to good movement Reason For Visit: IUP 34.5 GESTATIONAL DIABETES, NEPHROTIC SYNDROME, Physical Exam - Physical Exam Vital Signs: Temp Pulse Resp BP Pulse Ox 98.4 F 98 18 147/85 H 95 05/11/18 08:05 05/11/18 08:05 05/11/18 08:05 05/11/18 08:05 05/11/18 08:05 Intake & Output 05/10/18 05/11/18 05/12/18 06:59 06:59 06:59 Intake Total 600 2090 240 Output Total 500 1100 Balance 100 990 240 Weight 76.1 kg General appearance: PRESENT: no acute distress, well-nourished Respiratory exam: PRESENT: clear to auscultation esteban Cardiovascular exam: PRESENT: RRR GI/Abdominal exam: PRESENT: normal bowel sounds, soft - Mild right upper quadrant tenderness Extremities exam: ABSENT: calf tenderness, clubbing, full ROM, joint swelling, pedal edema, tenderness, +1 edema, +2 edema, other Result Laboratory Results: 05/09/18 17:09 05/09/18 17:09 05/10/18 21:55 Ur 24 Hour Volume 2242 Ur Total Protein 24 Hr 47164 H Assessment & Plan - Diagnosis (1) and insulin-dependent diabetes mellitus in third trimester Is this a current diagnosis for this admission?: Yes (2) Chronic hypertension affecting Is this a current diagnosis for this admission?: Yes - Plan Summary Plan Summary: IN: Plan: 1. Intrauterine at 35 weeks 2. Preeclampsia -stable -will put on BENNY hose -will check PIH labs 3. Insulin-dependent diabetic, during -not well controlled -adjusted Insulin
[2018-05-11 11:25] LABS: HEMOGLOBIN 11.2 g/dL (12.0-15.5); MEAN CORPUSCULAR HEMOGLOBIN 30.4 pg (27.0-33.4); MEAN CORPUSCULAR HGB CONC 35.1 g/dL (32.0-36.0); MEAN CORPUSCULAR VOLUME 87 fl (80-97); PLATELET COUNT 207 10^3/uL (150-450); RED BLOOD COUNT 3.69 10^6/uL (3.72-5.28); RED CELL DISTRIBUTION WIDTH 13.1 % (11.5-14.0); WHITE BLOOD COUNT 10.1 10^3/uL (4.0-10.5)
[2018-05-11 11:50] LABS: ALANINE AMINOTRANSFERASE 29 U/L (9-52); ALBUMIN 2.7 g/dL (3.5-5.0); ALKALINE PHOSPHATASE 107 U/L (38-126); ANION GAP 9 (5-19); ASPARTATE AMINO TRANSFERASE 23 U/L (14-36); BILIRUBIN,TOTAL 0.5 mg/dL (0.2-1.3); BLOOD UREA NITROGEN 6 mg/dL (7-20); CALCIUM 9.3 mg/dL (8.4-10.2); CARBON DIOXIDE 19 mmol/L (22-30); CHLORIDE 107 mmol/L (98-107); GLUCOSE 100 mg/dL (75-110); POTASSIUM 4.2 mmol/L (3.6-5.0); SODIUM 135.3 mmol/L (137-145); TOTAL PROTEIN 5.2 g/dL (6.3-8.2); URIC ACID 3.5 mg/dL (2.5-6.2)
[2018-05-11] MEDS: ACETAMINOPHEN 325 MG TABLET PO PRN ×2 (12:10→22:04)
[2018-05-11 12:59] LABS: URINE CREATININE 57.6 mg/dL (16-327)
[2018-05-11 13:06] LABS: UR PRO/CREAT RATIO RESULT 5.8 mg/mg (0.0-0.2)
[2018-05-11] MEDS ORDERED: INSULIN REG, HUMAN 100 UNIT/ML 3 ML VIAL (PYX) SUBCUT SCH (16:00)
[2018-05-11] MEDS ORDERED: INSULIN NPH (ISOPHANE), HUMAN 100 UNIT/ML 3 ML SUBCUT SCH (22:00)
[2018-05-12] MEDS ORDERED: FAMOTIDINE 20 MG TABLET PO ONE (00:15)
[2018-05-12] MEDS: ZOLPIDEM TARTRATE 5 MG TABLET PO PRN ×2 (00:51→22:16)
[2018-05-12] MEDS: INSULIN REG, HUMAN 100 UNIT/ML 3 ML VIAL (PYX) SUBCUT SCH ×3 (08:59→17:26)
[2018-05-12] MEDS: LABETALOL HCL 200 MG TABLET PO SCH ×2 (09:00→22:16)
[2018-05-12] MEDS: INSULIN NPH (ISOPHANE), HUMAN 100 UNIT/ML 3 ML SUBCUT SCH ×3 (09:00→17:26)
[2018-05-12] MEDS: ACETAMINOPHEN 325 MG TABLET PO PRN ×2 (09:07→22:16)
[2018-05-12] MEDS: FAMOTIDINE 20 MG TABLET PO SCH ×2 (09:07→17:27)
[2018-05-12] MEDS: PRENATAL VITAMIN W DHA CAPSULE PO SCH (09:07)
[2018-05-12] MEDS ORDERED: INSULIN REG, HUMAN 100 UNIT/ML 3 ML VIAL (PYX) ONE (09:31)
[2018-05-12] MEDS ORDERED: INSULIN NPH (ISOPHANE), HUMAN 100 UNIT/ML 3 ML ONE (09:33)
--- NOTE | 2018-05-12 09:39 | PDOC PROGRESS REPORT ---
Subjective Progress Note for:: 05/12/18 Subjective:: pt states she feel well and good movement Reason For Visit: NEPHROTIC SYNDROME,PRE-ECLAMPSIA,DIABETES, Physical Exam - Physical Exam Vital Signs: Temp Pulse Resp BP Pulse Ox 98.1 F 97 20 152/95 H 98 05/12/18 07:21 05/12/18 07:21 05/12/18 07:21 05/12/18 07:21 05/12/18 07:21 Intake & Output 05/11/18 05/12/18 05/13/18 06:59 06:59 06:59 Intake Total 2089 2014 Output Total 1100 Balance 990 2014 General appearance: PRESENT: no acute distress Respiratory exam: PRESENT: clear to auscultation esteban GI/Abdominal exam: PRESENT: soft Extremities exam: PRESENT: other Result Laboratory Results: 05/11/18 11:15 05/11/18 11:15 05/11/18 05/11/18 11:15 11:15 WBC 10.1 RBC 3.69 L Hgb 11.2 L Hct 32.0 L MCV 87 MCH 30.4 MCHC 35.1 RDW 13.1 Plt Count 207 Sodium 135.3 L Potassium 4.2 Chloride 107 Carbon Dioxide 19 L Anion Gap 9 BUN 6 L Creatinine 0.50 L Est GFR ( Amer) > 60 Est GFR (Non-Af Amer) > 60 Glucose 100 Uric Acid 3.5 Calcium 9.3 Total Bilirubin 0.5 AST 23 ALT 29 Alkaline Phosphatase 107 Total Protein 5.2 L Albumin 2.7 L Assessment & Plan - Diagnosis (1) Chronic hypertension affecting Is this a current diagnosis for this admission?: Yes (2) and insulin-dependent diabetes mellitus in third trimester Is this a current diagnosis for this admission?: Yes - Plan Summary Plan Summary: repeat 24 hour urine and increase pt's insulin. depending on labs and pt condition plan delivery accordingly
[2018-05-13] MEDS: FAMOTIDINE 20 MG TABLET PO SCH ×2 (09:32→18:03)
[2018-05-13] MEDS: LABETALOL HCL 200 MG TABLET PO SCH ×2 (09:32→21:06)
[2018-05-13] MEDS: INSULIN NPH (ISOPHANE), HUMAN 100 UNIT/ML 3 ML SUBCUT SCH ×2 (09:32→18:02)
[2018-05-13] MEDS: PRENATAL VITAMIN W DHA CAPSULE PO SCH (09:32)
[2018-05-13] MEDS: INSULIN REG, HUMAN 100 UNIT/ML 3 ML VIAL (PYX) SUBCUT SCH ×2 (09:33→18:03)
[2018-05-13] MEDS: ACETAMINOPHEN 325 MG TABLET PO PRN ×2 (13:22→21:04)
[2018-05-13 16:42] LABS: URINE PROTEIN 199.8 mg/dL (<12)
[2018-05-13 16:43] LABS: 24 HOUR URINE PROTEIN RESULT 4605 mg/day (42-225)
[2018-05-13 17:59] LABS: ABSOLUTE EOSINOPHILS # (AUTO) 0.2 10^3/uL (0.0-0.6); ABSOLUTE MONOCYTES (AUTO) 1.1 10^3/uL (0.1-1.4); ABSOLUTE NEUT (AUTO) 9.4 10^3/uL (1.7-8.2); BASOPHILS % (AUTO) 0.3 % (0-2); EOSINOPHILS % (AUTO) 1.9 % (0-6); HEMOGLOBIN 10.9 g/dL (12.0-15.5); LYMPHOCYTES % (AUTO) 15.4 % (13-45); MEAN CORPUSCULAR HEMOGLOBIN 29.6 pg (27.0-33.4); MEAN CORPUSCULAR HGB CONC 34.1 g/dL (32.0-36.0); MEAN CORPUSCULAR VOLUME 87 fl (80-97); MONOCYTES % (AUTO) 8.4 % (3-13); PLATELET COUNT 207 10^3/uL (150-450); RED BLOOD COUNT 3.68 10^6/uL (3.72-5.28); RED CELL DISTRIBUTION WIDTH 13.4 % (11.5-14.0); TOTAL CELLS COUNTED % (AUTO) 100 %; WHITE BLOOD COUNT 12.7 10^3/uL (4.0-10.5)
[2018-05-13 18:16] LABS: ALANINE AMINOTRANSFERASE 29 U/L (9-52); ALBUMIN 2.8 g/dL (3.5-5.0); ALKALINE PHOSPHATASE 109 U/L (38-126); ANION GAP 7 (5-19); ASPARTATE AMINO TRANSFERASE 25 U/L (14-36); BILIRUBIN,DIRECT 0.1 mg/dL (0.0-0.4); BILIRUBIN,TOTAL 0.4 mg/dL (0.2-1.3); BLOOD UREA NITROGEN 13 mg/dL (7-20); CALCIUM 9.1 mg/dL (8.4-10.2); CARBON DIOXIDE 22 mmol/L (22-30); CHLORIDE 105 mmol/L (98-107); GLUCOSE 137 mg/dL (75-110); POTASSIUM 4.2 mmol/L (3.6-5.0); SODIUM 133.6 mmol/L (137-145); TOTAL PROTEIN 5.5 g/dL (6.3-8.2); URIC ACID 3.9 mg/dL (2.5-6.2)
--- NOTE | 2018-05-13 18:21 | PDOC PROGRESS REPORT ---
Subjective Progress Note for:: 05/13/18 Subjective:: denies CARRERA, blurry vision, RUQ pain. doing well Reason For Visit: NEPHROTIC SYNDROME, CHTN ,DIABETES, Physical Exam - Physical Exam Vital Signs: Temp Pulse Resp BP Pulse Ox 98.4 F 82 16 137/84 H 98 05/13/18 16:24 05/13/18 16:24 05/13/18 16:24 05/13/18 16:24 05/13/18 16:24 Intake & Output 05/12/18 05/13/18 05/14/18 06:59 06:59 06:59 Intake Total 2014 1000 600 Output Total 750 Balance 2014 1000 -150 General appearance: PRESENT: no acute distress, well-developed, well-nourished Head exam: PRESENT: atraumatic, normocephalic Respiratory exam: PRESENT: clear to auscultation esteban, symmetrical, unlabored Cardiovascular exam: PRESENT: RRR. ABSENT: diastolic murmur, rubs, systolic murmur Pulses: PRESENT: normal dorsalis pedis pul, +2 pedal pulses bilateral GI/Abdominal exam: PRESENT: normal bowel sounds, soft. ABSENT: distended, guarding, mass, organolmegaly, rebound, tenderness Rectal exam: PRESENT: deferred Extremities exam: PRESENT: full ROM. ABSENT: calf tenderness, clubbing, pedal edema Musculoskeletal exam: PRESENT: ambulatory Neurological exam: PRESENT: alert, awake, oriented to person, oriented to place , oriented to time, oriented to situation, CN II-XII grossly intact. ABSENT: motor sensory deficit Skin exam: PRESENT: dry, intact, warm. ABSENT: cyanosis, rash Result Laboratory Results: 05/13/18 17:45 05/13/18 17:45 05/13/18 05/13/18 05/13/18 16:00 17:45 17:45 WBC 12.7 H RBC 3.68 L Hgb 10.9 L Hct 32.0 L MCV 87 MCH 29.6 MCHC 34.1 RDW 13.4 Plt Count 207 Seg Neutrophils % 74.0 Lymphocytes % 15.4 Monocytes % 8.4 Eosinophils % 1.9 Basophils % 0.3 Absolute Neutrophils 9.4 H Absolute Lymphocytes 2.0 Absolute Monocytes 1.1 Absolute Eosinophils 0.2 Absolute Basophils 0.0 Sodium 133.6 L Potassium 4.2 Chloride 105 Carbon Dioxide 22 Anion Gap 7 BUN 13 Creatinine 0.66 Est GFR ( Amer) > 60 Est GFR (Non-Af Amer) > 60 Glucose 137 H Uric Acid 3.9 Calcium 9.1 Total Bilirubin 0.4 AST 25 ALT 29 Alkaline Phosphatase 109 Total Protein 5.5 L Albumin 2.8 L Ur 24 Hour Volume 2305 Ur Total Protein 24 Hr 4605 H Status: Imported from PACS Assessment & Plan - Diagnosis (1) Chronic hypertension affecting Is this a current diagnosis for this admission?: Yes Plan: CHTN with improved control on Labetolol 200mg BID. 24 hr UTP elevated on 05/09 at 1231mg then on 05/10 approx 600mg, then on 05/11 was approx 300mg, today is 199mg. Nephrology consult placed for outpatient. Cardiology consult placed for outpatient. REviewed indication for both. D/w Dr. Jacqueline Hong with [facility] - very much appreciate her assistance. Does not appear to have PreE at this time. Attempt to get patient to 38wks if possible unless become symptomatic/severe features. Will have f/u 3times weekly. F/u on Wednesday. MFM consult placed for assistance as outpatient. Continue Labetolol 200mg po BID. pt is asymptomatic. PreE precautions reviewed. (2) and insulin-dependent diabetes mellitus in third trimester Is this a current diagnosis for this admission?: Yes Plan: Type II DM dx at 16yo in 05/2016. She reports Hb A1c 11.3 at that time and then she was able to get HbA1c down to 4.1 just prior to . She reports that she was seen at [facility] and taken off the insulin that her Cable Splicer had put her on and placed on metformin but that no HbA1c was done there to see where she was. She has not had Endocrinology f/u in some time. HbA1c now is 6.6 Reviewed and maternal risks with poorly controlled DM. EFW on 05/02 was 33.4% 2163g (4#12oz). Anatomy normal per report. She has not had a Echo. MFM consult placed for assistance with management and Echo if possible. Ophtho consult placed. Currently on NPH/Reg with breakfast and NPH/Reg with dinner. Usually would prefer to place pt on NPH with nighttime snack but this regimen seems to be doing ok for patient Will increase NPH/Reg at breakfast to 22/10 and then NPH/Reg 12/6 at dinner. - Time Time Spent with patient: 25-34 minutes Medications reviewed and adjusted accordingly: Yes Anticipated discharge: Home Within: within 24 hours - Inpatient Certification Based on my medical assessment, after consideration of the patient's comorbidities, presenting symptoms, or acuity I expect that the services needed warrant INPATIENT care.: No I certify that my determination is in accordance with my understanding of Medicare's requirements for reasonable and necessary INPATIENT services [42 CFR 412.3e].: No Post Hospital Care: D/C [employer] Documentation - Plan Summary Plan Summary: Discharge to home
--- NOTE | 2018-05-13 20:29 | PDOC DISCHARGE SUMMARY ---
General - Admit/Disc Date/PCP Admission Date/Primary Care Provider: 05/11/18 08:30 CHRISTO CARIAS MD Discharge Date: 05/13/18 - Discharge Diagnosis (1) Chronic hypertension affecting Is this a current diagnosis for this admission?: Yes Summary: CHTN with improved control on Labetolol 200mg BID. 24 hr UTP elevated on 05/09 at 1231mg then on 05/10 approx 600mg, then on 05/11 was approx 300mg, today is 199mg. Nephrology consult placed for outpatient. Cardiology consult placed for outpatient. REviewed indication for both. D/w Dr. Jacqueline Hong with [facility] - very much appreciate her assistance. Does not appear to have PreE at this time. Attempt to get patient to 38wks if possible unless become symptomatic/severe features. Will have f/u 3times weekly. F/u on Wednesday. MFM consult placed for assistance as outpatient. Continue Labetolol 200mg po BID. pt is asymptomatic. PreE precautions reviewed. (2) and insulin-dependent diabetes mellitus in third trimester Is this a current diagnosis for this admission?: Yes Summary: Type II DM dx at 16yo in 05/2016. She reports Hb A1c 11.3 at that time and then she was able to get HbA1c down to 4.1 just prior to . She reports that she was [facility] and taken off the insulin that her Coffee Grinder had put her on and placed on metformin but that no HbA1c was done there to see where she was. She has not had Endocrinology f/u in some time. HbA1c now is 6.6 Reviewed and maternal risks with poorly controlled DM. EFW on 05/02 was 33.4% 2163g (4#12oz). Anatomy normal per report. She has not had a Echo. MFM consult placed for assistance with management and Echo if possible. Ophtho consult placed. Currently on NPH/Reg with breakfast and NPH/Reg with dinner. Usually would prefer to place pt on NPH with nighttime snack but this regimen seems to be doing ok for patient Will increase NPH/Reg at breakfast to 22/10 and then NPH/Reg 12/6 at dinner. - Additional Information Resuscitation Status: Full Code Discharge Diet: Diabetic Discharge Activity: Activity As Tolerated, No Lifting Over 10 Pounds, Pelvic Rest, Walk Frequently Prescriptions: Insulin Regular, Human [Humulin R (Reg) Insulin 100 unit/mL] 6 unit SUBCUT ACSUPPER 30 Days #30 dose Insulin Regular, Human [Humulin R (Reg) Insulin 100 unit/mL] 10 unit SUBCUT ACBRKFST 30 Days #30 dose Labetalol HCl [Normodyne 200 mg Tablet] 200 mg PO Q12 30 Days #60 tablet NPH, Human Insulin Isophane [Humulin N (NPH) Insulin 100 unit/mL] 12 unit SUBCUT ACSUPPER 30 Days #30 dose NPH, Human Insulin Isophane [Humulin N (NPH) Insulin 100 unit/mL] 22 unit SUBCUT ACBRKFST 30 Days #30 dose Zolpidem Tartrate [Ambien 5 mg Tablet] 5 mg PO HSP PRN 10 Days #10 tablet PRN Reason: Home Medications: Vits96/Iron Fum/Folic [ Tablet] 1 each PO DAILY 05/05/18 Labetalol in Dextrose 5 % [Labetalol 200 mg/200 ml-D5w] 1 tab PO BID 05/09/18 Acetaminophen [Tylenol 325 mg Tablet] 650 mg PO Q4HP PRN tablet 05/13/18 Famotidine [Pepcid 20 mg Tablet] 20 mg PO BID tablet 05/13/18 Insulin Regular, Human [Humulin R (Reg) Insulin 100 unit/mL] 6 unit SUBCUT ACSUPPER 30 Days #30 dose 05/13/18 Insulin Regular, Human [Humulin R (Reg) Insulin 100 unit/mL] 10 unit SUBCUT ACBRKFST 30 Days #30 dose 05/13/18 Labetalol HCl [Normodyne 200 mg Tablet] 200 mg PO Q12 30 Days #60 tablet NPH, Human Insulin Isophane [Humulin N (NPH) Insulin 100 unit/mL] 12 unit SUBCUT ACSUPPER 30 Days #30 dose 05/13/18 NPH, Human Insulin Isophane [Humulin N (NPH) Insulin 100 unit/mL] 22 unit SUBCUT ACBRKFST 30 Days #30 dose 05/13/18 Zolpidem Tartrate [Ambien 5 mg Tablet] 5 mg PO HSP PRN 10 Days #10 tablet History of Present Illness Patient complains of: elevated BP and elevated accucheck History of Present Illness: GARRETT BAUTISTA is a 18 year old female with Type II DM and CHTN at 35+ 2ega. Hospital Course Hospital Course: 18 year old female with Type II DM and CHTN at 35+2ega admitted for BP and sugar control. She had an elevated 24 hr UTP that was repeated and is now down to 199mg. Accuchecks are under better control now with insulin adjustment. Reviewed case with [facility]. Ok to discharge with very close f/u in office and consults placed to MFM, Ophtho, Cardio, Nephrololgy Physical Exam - Physical Exam Vital Signs: Temp Pulse Resp BP Pulse Ox 98.2 F 94 18 161/88 H 97 05/13/18 19:17 05/13/18 19:17 05/13/18 19:17 05/13/18 19:17 05/13/18 19:17 Intake & Output 05/12/18 05/13/18 05/14/18 06:59 06:59 06:59 Intake Total 2014 1000 960 Output Total 750 Balance 2014 1000 210 General appearance: PRESENT: no acute distress, well-developed, well-nourished Head exam: PRESENT: atraumatic, normocephalic Respiratory exam: PRESENT: clear to auscultation esteban, symmetrical, unlabored Cardiovascular exam: PRESENT: RRR. ABSENT: diastolic murmur, rubs, systolic murmur GI/Abdominal exam: PRESENT: normal bowel sounds, soft. ABSENT: distended, guarding, mass, organolmegaly, rebound, tenderness Rectal exam: PRESENT: deferred Musculoskeletal exam: PRESENT: ambulatory Neurological exam: PRESENT: alert, awake, oriented to person, oriented to place , oriented to time, oriented to situation, CN II-XII grossly intact. ABSENT: motor sensory deficit Result Laboratory Results: 05/13/18 17:45 05/13/18 17:45 05/13/18 05/13/18 05/13/18 16:00 17:45 17:45 WBC 12.7 H RBC 3.68 L Hgb 10.9 L Hct 32.0 L MCV 87 MCH 29.6 MCHC 34.1 RDW 13.4 Plt Count 207 Seg Neutrophils % 74.0 Lymphocytes % 15.4 Monocytes % 8.4 Eosinophils % 1.9 Basophils % 0.3 Absolute Neutrophils 9.4 H Absolute Lymphocytes 2.0 Absolute Monocytes 1.1 Absolute Eosinophils 0.2 Absolute Basophils 0.0 Sodium 133.6 L Potassium 4.2 Chloride 105 Carbon Dioxide 22 Anion Gap 7 BUN 13 Creatinine 0.66 Est GFR ( Amer) > 60 Est GFR (Non-Af Amer) > 60 Glucose 137 H Uric Acid 3.9 Calcium 9.1 Total Bilirubin 0.4 AST 25 ALT 29 Alkaline Phosphatase 109 Total Protein 5.5 L Albumin 2.8 L Ur 24 Hour Volume 2305 Ur Total Protein 24 Hr 4605 H Plan Discharge Plan: 45 minutes spent discussing care with patient. Time Spent: Greater than 30 Minutes
[2018-05-13 22:09] VITALS: BP 151/82
== END 2018-05-13 22:30 | disposition home or self-care (01) | DRG 833 ==
LOC: LC 16:15 → LR 19:31 → 2N 22:02 → OBSVTOIN 05-11 08:30
PROVIDERS: ADMIT Obstetrics & Gynecology; ATTEND Obstetrics & Gynecology
PROC: 4A1HXCZ Monitoring of Products of Conception, Cardiac Rate, External Approach (ICD-10-PCS; principal; 2018-05-11)
DX: O13.3 Gestational [pregnancy-induced] hypertension without significant proteinuria, third trimester (principal); O24.419 Gestational diabetes mellitus in pregnancy, unspecified control; E11.9 Type 2 diabetes mellitus without complications; Z3A.35 35 weeks gestation of pregnancy; Z79.4 Long term (current) use of insulin
CPT/HCPCS: 36415; 59025; 80053; 80307; 81001; 82570; 82962; 83036; 83615; 84156; 84550; 85025; 85027; G0378; J0360; J1815; J3490

== ENCOUNTER 2018-05-18 10:38 | Outpatient (CLI) | payer OTHER, MEDICAID ==
--- NOTE | 2018-05-18 11:43 | Non Stress Test Report ---
Non Stress Test Datetime Report Generated by CPN: 05/18/2018 11:43 DEMOGRAPHIC EGA NST: 36.0 INDICATION Indication for Study: Gestational Hypertension; Other Indication for Study (NST) Other: Repeat NST MONITORING Monitor Explained: Monitor Explained; Test Explained; Patient Verbalized Understanding Time on Monitor: 05/18/2018 10:34 Time off Monitor: 05/18/2018 11:16 NST Duration: 42 NST INTERVENTIONS NST Interventions: PO Hydration; Reposition Patient Physician Notified NST: Danica Villafuerte, CNMar BABY A: [id number] BABY A Movement : Present Contraction Frequency : rare FHR Baseline : 140 Accelerations : 15X15 Decelerations : None Variability : Moderate 6-25bpm NST Review: Meets Criteria for Reactive NST NST Review and Verified By : THONY Lopez Results: Reactive NST REPORT Report Trigger: Send Report
== END 2018-05-18 11:30 | disposition home or self-care (01) ==
LOC: LC 10:38
PROVIDERS: ATTEND Obstetrics & Gynecology
PROC: 4A1HXCZ Monitoring of Products of Conception, Cardiac Rate, External Approach (ICD-10-PCS; principal; 2018-05-18)
DX: O13.3 Gestational [pregnancy-induced] hypertension without significant proteinuria, third trimester (principal); O47.03 False labor before 37 completed weeks of gestation, third trimester; Z3A.36 36 weeks gestation of pregnancy
CPT/HCPCS: 59025

== ENCOUNTER 2018-05-19 10:13 | Outpatient (CLI) | payer OTHER, MEDICAID ==
[~2018-05-19 10:13] MED LIST: ACETAMINOPHEN 325 MG TABLET PO PRN; ACETAMINOPHEN WITH CODEINE #3 TABLET PO ONE; ZOLPIDEM TARTRATE 5 MG TABLET PO PRN
[2018-05-19 11:05] LABS: APPEARANCE,URINE CLOUDY; BILIRUBIN,URINE NEGATIVE (NEGATIVE); COLOR,URINE YELLOW; GLUCOSE, URINE NEGATIVE (NEGATIVE); KETONES,URINE NEGATIVE (NEGATIVE); LEUKOCYTE ESTERASE,URINE NEGATIVE (NEGATIVE); NITRITE,URINE NEGATIVE (NEGATIVE); PROTEIN,URINE >=500 mg/dL (NEGATIVE); URINE SPECIFIC GRAVITY 1.025; UROBILINOGEN,URINE NEGATIVE mg/dL (<2.0)
[2018-05-19] MEDS ORDERED: ACETAMINOPHEN 325 MG TABLET ONE (11:22)
[2018-05-19 11:36] LABS: HEMATOCRIT 31.6 % (36.0-47.0); HEMOGLOBIN 10.8 g/dL (12.0-15.5); MEAN CORPUSCULAR HEMOGLOBIN 29.9 pg (27.0-33.4); MEAN CORPUSCULAR HGB CONC 34.1 g/dL (32.0-36.0); MEAN CORPUSCULAR VOLUME 88 fl (80-97); PLATELET COUNT 203 10^3/uL (150-450); RED CELL DISTRIBUTION WIDTH 13.1 % (11.5-14.0); WHITE BLOOD COUNT 10.8 10^3/uL (4.0-10.5)
[2018-05-19 11:41] LABS: URINE AMPHETAMINES SCREEN NEGATIVE; URINE BARBITURATES SCREEN NEGATIVE; URINE BENZODIAZEPINES SCREEN NEGATIVE; URINE COCAINE SCREEN NEGATIVE; URINE MARIJUANA (THC) SCREEN NEGATIVE; URINE METHADONE SCREEN NEGATIVE; URINE PHENCYCLIDINE SCREEN NEGATIVE
[2018-05-19 11:58] LABS: ALANINE AMINOTRANSFERASE 22 U/L (9-52); ALBUMIN 2.6 g/dL (3.5-5.0); ALKALINE PHOSPHATASE 109 U/L (38-126); ANION GAP 8 (5-19); ASPARTATE AMINO TRANSFERASE 24 U/L (14-36); BILIRUBIN,TOTAL 0.5 mg/dL (0.2-1.3); BLOOD UREA NITROGEN 8 mg/dL (7-20); CALCIUM 9.2 mg/dL (8.4-10.2); CARBON DIOXIDE 20 mmol/L (22-30); CHLORIDE 106 mmol/L (98-107); GLUCOSE 126 mg/dL (75-110); POTASSIUM 3.9 mmol/L (3.6-5.0); SODIUM 134.1 mmol/L (137-145); TOTAL PROTEIN 5.1 g/dL (6.3-8.2); URIC ACID 4.8 mg/dL (2.5-6.2)
[2018-05-19 13:14] LABS: URINE PROTEIN 1879.6 mg/dL (<12)
[2018-05-19 13:17] LABS: UR PRO/CREAT RATIO RESULT 8.4 mg/mg (0.0-0.2); URINE CREATININE 222.7 mg/dL (16-327)
== END 2018-05-19 13:03 | disposition home or self-care (01) ==
LOC: LC 10:13
PROVIDERS: ATTEND Student in an Organized Health Care Education/Training Program
PROC: 4A1HXCZ Monitoring of Products of Conception, Cardiac Rate, External Approach (ICD-10-PCS; principal; 2018-05-19)
DX: O47.03 False labor before 37 completed weeks of gestation, third trimester (principal); Z3A.36 36 weeks gestation of pregnancy
CPT/HCPCS: 36415; 59025; 80053; 80307; 81005; 82570; 82962; 83615; 84156; 84550; 85027

== ENCOUNTER 2018-06-09 19:08 | Emergency (ER) | payer OTHER, MEDICAID ==
[2018-06-09 19:15] VITALS: BP 139/82
--- NOTE | 2018-06-09 19:46 | ER Document Report ---
ED GI/ - General Chief Complaint: Post Problem Stated Complaint: C SECTION INCISION CHECK Time Seen by Provider: 06/09/18 19:34 Mode of Arrival: Ambulatory Information source: Patient Notes: Chief complaint: Pain at the surgical site History of complain:( obtained from----patient) 18 years old female who had a C- section 2 weeks ago the lateral part of the incision was leaking yellow fluid and little pain for therefore present to the ED. No fever chills or other constitutional symptoms. Onset: As above Duration: Last few days Severity: Mild Quality: None Context: As described above Exacerbating factor and relieving factors: None REVIEW OF SYSTEMS: CONSTITUTIONAL : Denies fever, chills, or sweats. Denies recent illness. EENT: Denies eye, ear, throat, or mouth pain or symptoms. Denies nasal or sinus congestion or discharge. Denies throat, tongue, or mouth swelling or difficulty swallowing. CARDIOVASCULAR: Denies chest pain. Denies palpitations or racing or irregular heart beat. Denies ankle edema. RESPIRATORY: Denies cough, cold, or chest congestion. Denies shortness of breath, difficulty breathing, or wheezing. GASTROINTESTINAL: Denies distention. Denies nausea, vomiting, or diarrhea. Denies blood in vomitus, stools, or per rectum. Denies black, tarry stools. Denies constipation. GENITOURINARY: Denies difficulty urinating, painful urination, burning, frequency, blood in urine, or discharge. FEMALE GENITOURINARY: Denies vaginal bleeding, heavy or abnormal periods, irregular periods. Denies vaginal discharge or odor. MUSCULOSKELETAL: Denies back or neck pain or stiffness. Denies joint pain or swelling. SKIN: Denies rash, lesions or sores. HEMATOLOGIC : Denies easy bruising or bleeding. LYMPHATIC: Denies swollen, enlarged glands. NEUROLOGICAL: Denies confusion or altered mental status. Denies passing out or loss of consciousness. Denies dizziness or lightheadedness. Denies headache. Denies weakness or paralysis or loss of use of either side. Denies problems with gait or speech. Denies sensory loss, numbness, or tingling. Denies seizures. PSYCHIATRIC: Denies anxiety or stress. Denies depression, suicidal ideation, or homicidal ideation. ALL OTHER SYSTEMS REVIEWED AND NEGATIVE. PHYSICAL EXAMINATION: GENERAL: Well-appearing, well-nourished and in no acute distress. HEAD: Atraumatic, normocephalic. EYES: Pupils equal round and reactive to light, extraocular movements intact, conjunctiva are normal. ENT: Nares patent, oropharynx clear without exudates. Moist mucous membranes. NECK: Normal range of motion, supple without lymphadenopathy LUNGS: Breath sounds clear to auscultation bilaterally and equal. No wheezes rales or rhonchi. HEART: Regular rate and rhythm without murmurs ABDOMEN: Soft, nontender, nondistended abdomen. No guarding, no rebound. No masses appreciated. Suprapubic incision has almost healed well except on the lateral side slight opening and a yellow discharge was noted. Little induration underneath. No fluctuant mass. Examination of genitals-deferred Musculoskeletal: Normal range of motion, no pitting or edema. No cyanosis. NEUROLOGICAL: Cranial nerves grossly intact. Normal speech, normal gait. Normal sensory, motor exams PSYCH: Normal mood, normal affect. SKIN: Warm, Dry, normal turgor, no rashes or lesions noted. Dictation was performed using [employer] voice recognition software TRAVEL OUTSIDE OF THE [place] IN LAST 30 DAYS: No - HPI Notes: 06/09/18 19:42 Dictated - Related Data Allergies/Adverse Reactions: No Known Allergies Allergy (Verified 06/09/18 19:11) Past Medical History - Social History Smoking Status: Never Smoker Chew tobacco use (# tins/day): No Frequency of alcohol use: None Drug Abuse: None Lives with: Family Family History: Reviewed & Not Pertinent Patient has suicidal ideation: No Patient has homicidal ideation: No - Past Medical History Cardiac Medical History: Reports: Hx Hypertension - just during Pulmonary Medical History: Reports: Hx Asthma - when younger Endocrine Medical History: Reports: Hx Diabetes Mellitus Type 2 Renal/ Medical History: Denies: Hx Peritoneal Dialysis Past Surgical History: Reports: Hx Orthopedic Surgery - R leg - Immunizations Hx Diphtheria, Pertussis, Tetanus Vaccination: Yes Review of Systems - Review of Systems Notes: Dictated Physical Exam - Vital signs Vitals: Temp Pulse Resp BP Pulse Ox 98.7 F 81 16 139/82 H 98 06/09/18 19:13 06/09/18 19:13 06/09/18 19:13 06/09/18 19:13 06/09/18 19:13 - Notes Notes: Dictated Course - Re-evaluation Re-evalutation: 06/09/18 19:42 The wound was cleaned and dressed - Vital Signs Vital signs: Temp Pulse Resp BP Pulse Ox 98.7 F 81 16 139/82 H 98 06/09/18 19:13 06/09/18 19:13 06/09/18 19:13 06/09/18 19:13 06/09/18 19:13 Discharge - Discharge Clinical Impression: Wound infection following section, Condition: Fair Disposition: HOME, SELF-CARE Instructions: Abscess ([facility]), Cellulitis ([facility]) Prescriptions: Cephalexin Monohydrate [Keflex 500 mg Capsule] 500 mg PO Q6H 7 Days #30 capsule Lactulose [Cephulac Syrup 20 gm/30 ml Udcup] 20 gm PO BID #120 udc Referrals: CHRISTO CARIAS MD [Primary Care Provider] - Follow up as needed
== END 2018-06-09 19:48 | disposition home or self-care (01) ==
LOC: ER 19:08
DX: O86.01 Infection of obstetric surgical wound, superficial incisional site (principal)
CPT/HCPCS: 99283

== ENCOUNTER 2018-08-04 11:46 | Emergency (ER) | payer OTHER, MEDICAID ==
[2018-08-04 11:50] VITALS: BP 138/89
[2018-08-04] MEDS ORDERED: GUAIFENESIN 600 MG TABLET.SA PO ONE (12:34)
[2018-08-04] MEDS ORDERED: LORATADINE 10 MG TABLET PO ONE (12:34)
[2018-08-04] MEDS ORDERED: PSEUDOEPHEDRINE HCL 30 MG TABLET PO ONE (12:34)
[2018-08-04] MEDS ORDERED: IBUPROFEN 800 MG TABLET PO ONE (12:35)
--- NOTE | 2018-08-04 12:40 | ER Document Report ---
ED Flu Like - General Chief Complaint: Flu Symptoms Stated Complaint: COUGH,CONGESTION,BODY ACHES Time Seen by Provider: 08/04/18 12:16 Mode of Arrival: Ambulatory Information source: Patient Notes: 18-year-old female presented to ED for complaint of cough cold congestion runny nose body aches fever started on Wednesday. She states she has been taken some Tylenol. Is alert and oriented respirations regular and unlabored speaking in full sentences walks with a gait. TRAVEL OUTSIDE OF THE [place] IN LAST 30 DAYS: No - HPI Onset: Other - Wednesday Timing/Duration: Intermittent Quality of pain: Achy Severity: Mild Associated symptoms: Body/muscle aches, Nonproductive cough, Rhinnorhea, Sinus pain/drainage, Sore throat Similar symptoms previously: Yes Recently seen / treated by doctor: No - Related Data Allergies/Adverse Reactions: No Known Allergies Allergy (Verified 08/04/18 12:18) Past Medical History - General Information source: Patient - Social History Smoking Status: Never Smoker Cigarette use (# per day): No Chew tobacco use (# tins/day): No Smoking Education Provided: No Frequency of alcohol use: None Drug Abuse: None Lives with: Family Family History: Reviewed & Not Pertinent Patient has suicidal ideation: No Patient has homicidal ideation: No - Past Medical History Cardiac Medical History: Reports: Hx Hypertension - just during Pulmonary Medical History: Reports: Hx Asthma - when younger EENT Medical History: Reports: None Neurological Medical History: Reports: None Endocrine Medical History: Reports: Hx Diabetes Mellitus Type 2 Renal/ Medical History: Reports: None Malignancy Medical History: Reports: None GI Medical History: Reports: None Musculoskeletal Medical History: Reports Hx Musculoskeletal Trauma Skin Medical History: Reports None Psychiatric Medical History: Reports: None Traumatic Medical History: Reports: Hx Fractures - Leg right Infectious Medical History: Reports: None Past Surgical History: Reports: Hx Orthopedic Surgery - R leg - Immunizations Immunizations up to date: Yes Hx Diphtheria, Pertussis, Tetanus Vaccination: Yes Review of Systems - Review of Systems Constitutional: Recent illness. denies: Chills, Fever EENT: Nose congestion, Nose discharge, Sinus pressure, Sinus discharge, Throat pain Cardiovascular: No symptoms reported Respiratory: Cough. denies: Sputum Gastrointestinal: No symptoms reported Genitourinary: No symptoms reported Female Genitourinary: No symptoms reported Musculoskeletal: No symptoms reported Skin: No symptoms reported Hematologic/Lymphatic: No symptoms reported Neurological/Psychological: No symptoms reported -: Yes All other systems reviewed and negative Physical Exam - Vital signs Vitals: Temp Pulse Resp BP Pulse Ox 99.8 F 116 H 16 138/89 H 97 08/04/18 11:49 08/04/18 11:49 08/04/18 11:49 08/04/18 11:49 08/04/18 11:49 Interpretation: Normal - General General appearance: Appears well, Alert - HEENT Head: Normocephalic, Atraumatic Eyes: Normal Pupils: PERRL Ears: Normal External canal: Normal Tympanic membrane: Normal Sinus: Normal Nasal: Purulent discharge, Swelling Pharynx: Post nasal drainage. No: Exudate, Tonsillar hypertrophy Neck: Normal - Respiratory Respiratory status: No respiratory distress Chest status: Nontender Breath sounds: Nonproductive cough Chest palpation: Normal - Cardiovascular Rhythm: Regular Heart sounds: Normal auscultation Murmur: No - Abdominal Inspection: Normal Distension: No distension Bowel sounds: Normal Tenderness: Nontender Organomegaly: No organomegaly - Back Back: Normal, Nontender - Extremities General upper extremity: Normal inspection, Nontender, Normal color, Normal ROM, Normal temperature General lower extremity: Normal inspection, Nontender, Normal color, Normal ROM, Normal temperature, Normal weight bearing. No: Robinson's sign - Neurological Neuro grossly intact: Yes Cognition: Normal Orientation: AAOx4 [place] Coma Scale Eye Opening: Spontaneous [place] Coma Scale Verbal: Oriented [place] Coma Scale Motor: Obeys Commands Sharee Coma Scale Total: 15 Speech: Normal Motor strength normal: LUE, RUE, LLE, RLE Sensory: Normal - Psychological Associated symptoms: Normal affect, Normal mood - Skin Skin Temperature: Warm Skin Moisture: Dry Skin Color: Normal Course - Re-evaluation Re-evalutation: 08/04/18 13:04 After performing a Medical Screening Examination, I estimate there is LOW risk for ACUTE CORONARY SYNDROME, RESPIRATORY FAILURE, SEPSIS OR MENINGITIS, thus I consider the discharge disposition reasonable. I have reevaluated this patient multiple times and no significant life threatening changes are noted. The patient and I have discussed the diagnosis and risks, and we agree with discharging home with close follow-up. We also discussed returning to the Emergency Department immediately if new or worsening symptoms occur. We have discussed the symptoms which are most concerning (e.g., changing or worsening pain, trouble swallowing or breathing, neck stiffness, fever) that necessitate immediate return. - Vital Signs Vital signs: Temp Pulse Resp BP Pulse Ox 99.4 F 98 18 138/89 H 100 08/04/18 12:40 08/04/18 12:40 08/04/18 12:40 08/04/18 11:49 08/04/18 12:40 Discharge - Discharge Clinical Impression: Upper respiratory infection Qualifiers: URI type: unspecified URI Qualified Code(s): J06.9 - Acute upper respiratory infection, unspecified Condition: Stable Disposition: HOME, SELF-CARE Additional Instructions: UPPER RESPIRATORY ILLNESS: You have a viral infection of the respiratory passages -- a "cold." This common infection causes nasal congestion, drainage, and often sore throat and cough. It is highly contagious. The disease usually lasts about 10 to 14 days. There is no "cure" for the viral infection -- it must run its course. If there is a complication, such as bacterial infection in the nose, sinuses, middle ear, or bronchial tubes, antibiotics may be required. The antibiotics won't affect the virus. Drink plenty of fluids. A humidifier may help. An expectorant medication or decongestant may make you more comfortable. Use acetaminophen or ibuprofen for fever or aches. See the doctor if fever persists over two days, if there is any significant worsening of your symptoms, or if you simply fail to improve as expected. DECONGESTANT MEDICATION: A decongestant medicine has been suggested. Often this medicine is combined in the same tablet with an antihistamine or expectorant. This type of medicine is helpful in treating a bad cold or sinus condition, as well as in treatment of the nasal congestion of hay fever. It is not of much benefit for lung infections. Decongestant medicines are related to stimulants. They can cause an increase in blood pressure and heart rate. Persons with heart disease and high blood pressure should not take decongestants without discussing this with the physician. If you develop palpitations, chest pain, headache, or tremors, stop the medicine and consult your physician. USE OF ACETAMINOPHEN (Tylenol): Acetaminophen may be taken for pain relief or fever control. It's much safer than aspirin, offering a wider range of "safe" dosages. It is safe during . Some brand names are Tylenol, Panadol, Datril, Anacin 3, Tempra, and Liquiprin. Acetaminophen can be repeated every four hours. The following are maximum recommended dosages: >89 pounds or adults 650 mg to 900 mg Acetaminophen can be repeated every four hours. Maximum dose not to exceed 4000 mg a day. You were treated with Claritin 10 mg Sudafed 30 mg Mucinex 600 mg and ibuprofen 600 mg in the emergency room for your cough cold congestion. These are all [id number] medications that she can buy at the drugstore. You will have to ask the pharmacist for the Sudafed. He can also use Flonase spray which is [id number]. Use according to the box instructions. Chloraseptic spray would help with your sore throat. You can also use salt and soda gargles. Salt and soda solution 1 quart of water 1 tablespoon of salt 1 teaspoon of baking soda Mixed 3 ingredients together and boil for 1 minute Placed in a covered quart jar Use 1/2 ounce of cold solution to gargle 3 times a day FOLLOW-UP CARE: If you have been referred to a physician for follow-up care, call the physicians office for an appointment as you were instructed or within the next two days. If you experience worsening or a significant change in your symptoms, notify the physician immediately or return to the Emergency Department at any time for re-evaluation. Forms: Elevated Blood Pressure, Return to Work Referrals: CHRISTO CARIAS MD [Primary Care Provider] - Follow up as needed
== END 2018-08-04 12:54 | disposition home or self-care (01) ==
LOC: ER 11:46
DX: M79.10 Myalgia, unspecified site (principal); R50.9 Fever, unspecified; J06.9 Acute upper respiratory infection, unspecified; E11.9 Type 2 diabetes mellitus without complications
CPT/HCPCS: 99283